=== PATIENT | female | born 1940 | race Caucasian/White ===

== ENCOUNTER 2020-08-01 10:40 | Outpatient (CLI) | payer MEDICARE, BC ==
[2020-08-01] MEDS ORDERED: Magnevist 469MG/ML 20 ML VIAL ONE (11:39)
== END 2020-08-01 10:41 | disposition home or self-care (01) ==
LOC: BICMRI 10:40
PROVIDERS: ATTEND Specialist
DX: H90.A32 Mixed conductive and sensorineural hearing loss, unilateral, left ear with restricted hearing on the contralateral side (principal); I67.82 Cerebral ischemia; M47.812 Spondylosis without myelopathy or radiculopathy, cervical region
CPT/HCPCS: 36415; 70210; 70553; 82565; 83520; 85025; 86038; 86200; 86225; 86618; 86780; A9579